=== PATIENT | female | born 1950 | race Two or more races ===

== ENCOUNTER 2018-05-08 08:33 | Outpatient (CLI) | payer OTHER | END 2018-05-08 12:44 | disposition home or self-care (01) | LOC: SONOGRAMA 08:33 | DX: E04.2 Nontoxic multinodular goiter (principal) ==

== ENCOUNTER 2023-01-12 08:13 | Emergency (ER) | payer OTHER ==
[~2023-01-12] VITALS: Ht 154.9 cm; Wt 81.6 kg
[2023-01-12] MEDS ORDERED: TRANXENE T-TAB7.5 MG PO (08:28)
[2023-01-12] MEDS ORDERED: FENOFIBRATE50 MG PO (08:28)
[2023-01-12] MEDS ORDERED: DOXAZOSIN MESYLA1 MG PO (08:29)
== END 2023-01-12 17:35 | disposition home or self-care (01) ==
LOC: ER 08:13
DX: R41.0 Disorientation, unspecified (principal); G30.9 Alzheimer's disease, unspecified; F02.80 Dementia in other diseases classified elsewhere, unspecified severity, without behavioral disturbance, psychotic disturbance, mood disturbance, and anxiety; I10 Essential (primary) hypertension; Z91.013 Allergy to seafood; Z20.822 Contact with and (suspected) exposure to COVID-19

== ENCOUNTER 2023-02-01 12:34 | Outpatient (CLI) | payer OTHER ==
[~2023-02-01 12:34] MED LIST: DOXAZOSIN MESYLA1 MG PO; FENOFIBRATE50 MG PO; TRANXENE T-TAB7.5 MG PO
== END 2023-02-01 12:35 | disposition home or self-care (01) ==
LOC: NUCLEAR 12:34
PROVIDERS: ATTEND Psychiatry & Neurology Clinical Neurophysiology
DX: F31.9 Bipolar disorder, unspecified (principal); F05 Delirium due to known physiological condition; F03.90 Unspecified dementia, unspecified severity, without behavioral disturbance, psychotic disturbance, mood disturbance, and anxiety
CPT/HCPCS: 78803; A9557

== ENCOUNTER 2023-02-09 18:08 | Emergency (ER) | payer OTHER ==
[~2023-02-09] VITALS: Ht 157.5 cm; Wt 86.2 kg
[2023-02-09] MEDS ORDERED: ARICEPT5 MG (18:19)
== END 2023-02-09 19:35 | disposition home or self-care (01) ==
LOC: ER 18:08
DX: G30.8 Other Alzheimer's disease (principal); F02.80 Dementia in other diseases classified elsewhere, unspecified severity, without behavioral disturbance, psychotic disturbance, mood disturbance, and anxiety; Z91.013 Allergy to seafood

== ENCOUNTER 2023-02-15 16:42 | Inpatient (IN) | payer OTHER ==
[~2023-02-15] VITALS: Ht 66 cm; Wt 86.2 kg
[~2023-02-15 16:42] MED LIST changes: +ARICEPT5 MG
[2023-02-15] MEDS ORDERED: ABILIFY10 MG (17:05)
[2023-02-15] MEDS ORDERED: FENOFIBRATE50 MG (17:05)
[2023-02-15] MEDS ORDERED: ALTACE10 MG (17:05)
[2023-02-15] MEDS ORDERED: RESTORIL15 MG (17:06)
[2023-02-15] MEDS ORDERED: TRANXENE T-TAB7.5 MG (17:06)
== END 2023-02-19 21:37 | disposition expired | DRG 640 ==
LOC: ER 16:42 → MEDJ 22:37
PROVIDERS: ADMIT Internal Medicine; ATTEND Internal Medicine
PROC: BW28ZZZ Computerized Tomography (CT Scan) of Head (ICD-10-PCS; 2023-02-15)
PROC: B24BYZZ Ultrasonography of Heart with Aorta using Other Contrast (ICD-10-PCS; 2023-02-15)
PROC: B348ZZZ Ultrasonography of Bilateral Internal Carotid Arteries (ICD-10-PCS; 2023-02-15)
PROC: 4A12X4Z Monitoring of Cardiac Electrical Activity, External Approach (ICD-10-PCS; 2023-02-16)
PROC: BT4JZZZ Ultrasonography of Kidneys and Bladder (ICD-10-PCS; 2023-02-16)
PROC: 5A1935Z Respiratory Ventilation, Less than 24 Consecutive Hours (ICD-10-PCS; principal; 2023-02-19)
PROC: 0BH18EZ Insertion of Endotracheal Airway into Trachea, Via Natural or Artificial Opening Endoscopic (ICD-10-PCS; 2023-02-19)
PROC: 0DH683Z Insertion of Infusion Device into Stomach, Via Natural or Artificial Opening Endoscopic (ICD-10-PCS; 2023-02-19)
DX: E87.1 Hypo-osmolality and hyponatremia (principal); I26.99 Other pulmonary embolism without acute cor pulmonale; I63.9 Cerebral infarction, unspecified; F31.9 Bipolar disorder, unspecified; R41.82 Altered mental status, unspecified; G30.9 Alzheimer's disease, unspecified; F02.80 Dementia in other diseases classified elsewhere, unspecified severity, without behavioral disturbance, psychotic disturbance, mood disturbance, and anxiety; I12.9 Hypertensive chronic kidney disease with stage 1 through stage 4 chronic kidney disease, or unspecified chronic kidney disease; N18.9 Chronic kidney disease, unspecified; I50.9 Heart failure, unspecified; I11.0 Hypertensive heart disease with heart failure; R06.03 Acute respiratory distress; I95.9 Hypotension, unspecified; Z66 Do not resuscitate